=== PATIENT | male | born 1985 ===

== ENCOUNTER 2023-11-20 09:29 | Outpatient (AMB) | payer OTHER, SELFPAY ==
--- NOTE | 2023-11-20 09:33 | A.OFFVIS_ITS ---
Intake Vital Signs 11/20/23 09:35 Height 5 ft 10 in Weight 200 lb 9.93 oz BMI 28.8 BP 140/90 H Blood Pressure Location Lt brachial Position Sitting Pulse 80 Intake Visit Reasons: Gastroesophageal reflux disease (GERD) Intake Note: Gerson presents to in office visit today as a new patient for GERD. CC: Patient reports GERD symptoms for 8 months, worst the last 5 months. He reports a lot of burping, worst with carbonated drinks and certain foods. Per patient he sometimes is constipated. Denies other GI symptoms. Multifocal Lens Inspector Required: No Allergies No Known Allergies Allergy (Verified 11/20/23 09:42) HPI Gastroesophageal reflux disease (GERD) HPI Details 38-year-old male here for initial evalua tion of GERD not responsive to H2 therapy. He is referred by Analilia Lindquist of the [facility]. PMX Childhood asthma Smoker Overweight Hypertension High cholesterol Eczema Migraines Depression History of hematuria GERD Low back pain/FACET ARTHROPATHY Joint pain/pelvis * SURGICAL HISTORY Adenoidectomy [place] teeth removes * ALLERGIES: NKDA * [facility] LABS: No labs in our system TODAY'S VISIT The problems started about 3 years ago when I got up and had a very sharp pain that dropped me to the floor. He presented to the [place] and to [facility] and was told that his liver was enlarged r/t drinking. He says his stools were runny back then as well when he was drinking more or had mixed drinks as opposed to beers. He has been having HB, burping and a lot of gas. This is worsened with carbonated beverages. He has a lot of flatulence. He moves his bowels 2-3 times a day and it varies between soft and watery stools. Aside from beer he also would have diarrhea with fried foods. He admits that he will have mild intermittent rectal leakage with flatulence. He also is having some early satiety after a few bites of food or even a drink/beverage. This happens 1-3 times a week. He denies any new medications, preceding illness, or big diet changes aside what he already said. He was on o2o and fiber with some help to the stool and HB. He is now on omeprazole, but was on famotidine in the past but not working very well. He also is on magnesium - which he thought was for GERD but this is likely c/t the gas and diarrhea. He will have intermittent sharp pains mostly under the ribcage to the left. The pain will be very bad for a few seconds and they last 30secs to 1 minute. This is not every day, a couple of times a week. No known FHX of food allergies or diarrheal syndromes. No known FHX GB disease. Will get diarrhea w/o, rast, crp, etc, HP stool, panc elastase. US to see if GB involved. STOP magnesium, change omeprazole to pantoprazole to avoid potential class s/e of diarrhea, ok to continue famotidine. Uses [place] pharmacy - I have written rx since we can not do E prescribing to the [place] successfully. I will also beginning a Chem panel both for potential pre-op and to evaluate his liver function. ROV 3 weeks. [facility] Medical History (Updated 11/20/23 @ 10:17 by DAVID Rojas) Tobacco use Migraine without aura, not intractable, without status migrainosus Major depressive disorder, recurrent, severe w/o psychotic behavior Pain, joint, pelvic region Hyperlipidemia, unspecified Hepatomegaly, not elsewhere classified Hematuria, unspecified Gastro-esophageal reflux disease without esophagitis Flexural eczema Essential (primary) hypertension Depression, unspecified Surgical History (Updated 11/20/23 @ 11:09 by DAVID Rojas) H/O wisdom tooth extraction H/O adenoidectomy Family History Maternal Aunt Cancer Paternal Grandmother Diabetes Father High cholesterol HTN (hypertension) Social History Alcohol intake: current Alcohol intake frequency: a few times a week Patient Tobacco Use Status: Current everyday Tobacco user Cigarette Packs Per Day: 10 Years Smoked: 20 years Substance Use Type: Marijuana Review of Systems Const Denies fatigue, Denies fever(s), Reports headache(s), Denies night sweats, Denies poor appetite and Denies weight loss Eyes Details: Glasses Reports requires corrective lenses ENT Reports Normal hearing present, Denies dental pain, Denies dysphagia, Reports headache(s), Denies hearing loss, Denies mouth pain, Denies odynophagia, Denies throat swelling, Denies tongue swelling and Reports other (Dentition adequate) Card Reports no additional complaints Resp Reports no additional complaints GI Details: Reports abdominal pain, Reports belching, Denies melena, Reports bloating, Denies hematochezia, Denies constipation, Denies GI cramping, Denies dysphagia, Reports excessive flatus, Reports early satiety, Reports heartburn, Reports diarrhea, Denies nausea, Denies odynophagia, Denies vomiting and Denies hematemesis Musc Reports back pain and Reports myalgias Skin/Breast Denies pruritus, Denies lesions, Denies rash and Denies jaundice Neuro Reports Normal hearing present, Denies Abnormal speech present and Reports headache(s) Endo Denies fatigue Aller/Immun Denies throat swelling and Denies tongue swelling Physical Exam Vital Signs: Last Vital Signs Pulse 80 11/20/23 09:35 BP 140/90 H 11/20/23 09:35 BMI result Body Mass Index 28.8 Const General: cooperative, no acute distress, well developed and well groomed Nutritional Appearance: average body habitus and well nourished Orientation/consciousness: oriented to person, oriented to place and oriented to time Limitations: No language barrier HEENT Head: Yes normocephalic and Yes atraumatic Eyes General: appearance normal, both eyes and all related structures Pupils: Equal, round and reactive pupils present Neck Neck: Yes normal visual inspection and Yes no lymphadenopathy Thyroid: Thyroid normal Resp Effort & Inspection: normal respiratory effort and able to speak in complete sentences Auscultation: clear to auscultation bilaterally Cardio Rate: regular rate Rhythm: regular rhythm Heart sounds: Normal, physiologic split S2 sound present Peripheral pulses: radial pulses present and posterior tibial pulses present GI Inspection: No distended and No Abdominal panniculus present Palpation (GI): Soft to palpation, nontender, no guarding, not rigid and No hepatosplenomegaly present Percussion: Yes normal to percussion Auscultation: Hyperactive bowel sounds present Rectal Exam - Male: Yes deferred Skin General skin exam: no rashes or lesions noted, turgor normal, skin not dry, no jaundice, No spider nevi and no striae Rashes: no rashes Nails: normal Neuro General: oriented to person, oriented to place and oriented to time Cranial nerves: Yes Equal, round and reactive pupils present and Yes Normal hearing present Speech: No Abnormal speech present Extrem General: Yes normal to inspection, No clubbing, No cyanosis and No edema Psych Appearance: grossly normal and well kempt Mental Status: mental status grossly normal Speech and movement: Normal speech and movement present Affect: normal affect Attitude: cooperative Thought process: Normal thought process present and not confabulating Thought content: Normal thought content present Insight: Fair insight present (Psych) and Limited insight present (Psych) Judgement: Fair judgement present (Psych) and Limited judgement present (Psych) Assessment & Plan Assessment & Plan (1) Gastro-esophageal reflux disease without esophagitis: Code(s): K21.9 - Gastro-esophageal reflux disease without esophagitis (2) Tobacco use: Code(s): Z72.0 - Tobacco use (3) Diarrhea: Code(s): R19.7 - Diarrhea, unspecified (4) Upper abdominal pain: Code(s): R10.10 - Upper abdominal pain, unspecified Plan The problems started about 3 years ago when I got up and had a very sharp pain that dropped me to the floor. [facility] and was told that his liver was enlarged r/t drinking. He says his stools were runny back then as well when he was drinking more or had mixed drinks as opposed to beers. He has been having HB, burping and a lot of gas. This is worsened with carbonated beverages. He has a lot of flatulence. He moves his bowels 2-3 times a day and it varies between soft and watery stools. Aside from beer he also would have diarrhea with fried foods. He admits that he will have mild intermittent rectal leakage with flatulence. He also is having some early satiety after a few bites of food or even a drink/beverage. This happens 1-3 times a week. He denies any new medications, preceding illness, or big diet changes aside what he already said. He was on o2o and fiber with some help to the stool and HB. He is now on omeprazole, but was on famotidine in the past but not working very well. He also is on magnesium - which he thought was for GERD but this is likely c/t the gas and diarrhea. He will have intermittent sharp pains mostly under the ribcage to the left. The pain will be very bad for a few seconds and they last 30secs to 1 minute. This is not every day, a couple of times a week. No known FHX of food allergies or diarrheal syndromes. No known FHX GB disease. Will get diarrhea w/o, rast, crp, etc, HP stool, panc elastase. US to see if GB involved. STOP magnesium, change omeprazole to pantoprazole to avoid potential class s/e of diarrhea, ok to continue famotidine. Uses [place] pharmacy - I have written rx since we can not do E prescribing to the [place] successfully. I will also beginning a Chem panel both for potential pre-op and to evaluate his liver function. ROV 3 weeks. Orders: Orders Comprehensive Met. Panel Today K21.9 - Gastro-esophageal reflux disease without esophagitis, R10.10 - Upper abdominal pain, unspecified, R19.7 - Diarrhea, unspecified C Reactive Protein Today K21.9 - Gastro-esophageal reflux disease without esopha gitis, R10.10 - Upper abdominal pain, unspecified, R19.7 - Diarrhea, unspecified Pancreatic Elastase-1 Today K21.9 - Gastro-esophageal reflux disease without esophagitis, R10.10 - Upper abdominal pain, unspecified, R19.7 - Diarrhea, unspecified H pylori Ag Stool Today K21.9 - Gastro-esophageal reflux disease without esophagitis, R10.10 - Upper abdominal pain, unspecified, R19.7 - Diarrhea, unspecified Gamma Glutamyl Transpeptidase Today R10.10 - Upper abdominal pain, unspecified, R19.7 - Diarrhea, unspecified Complete Blood Count Auto Diff Today K21.9 - Gastro-esophageal reflux disease without esophagitis, R10.10 - Upper abdominal pain, unspecified, R19.7 - Diarrhea, unspecified US abdomen complete Today K21.9 - Gastro-esophageal reflux disease without esophagitis, R10.10 - Upper abdominal pain, unspecified, R19.7 - Diarrhea, unspecified Transglutaminase IgA Today R10.10 - Upper abdominal pain, unspecified, R19.7 - Diarrhea, unspecified Transglutaminase Ab IgG Today R10.10 - Upper abdominal pain, unspecified, R19.7 - Diarrhea, unspecified Rast Allergen Today R10.10 - Upper abdominal pain, unspecified, R19.7 - Diarrhea, unspecified Medications: New pantoprazole (Protonix) 40 mg PO DAILY 30 days 30 tabs 3RF K21.9 - Gastro- esophageal reflux disease without esophagitis Coding Level of Care Code New Pt Level 3 (17978) Diagnoses Gastro-esophageal reflux disease without esophagitis K21.9 Tobacco use Z72.0 Diarrhea R19.7 Upper abdominal pain R10.10
[2023-11-20 09:35] VITALS: BP 140/90; PULSE 80; BMI 28.8
== END 2023-11-20 10:32 | disposition home or self-care (01) ==
PROVIDERS: PCP Nurse Practitioner Family; Visit Provider Nurse Practitioner
DX: K21.9 Gastro-esophageal reflux disease without esophagitis (principal); Z72.0 Tobacco use; R19.7 Diarrhea, unspecified; R10.10 Upper abdominal pain, unspecified
CPT/HCPCS: 99203

== ENCOUNTER → 2023-11-20 09:29 | Outpatient (BNVA) | payer OTHER, SELFPAY | PROVIDERS: PCP Nurse Practitioner Family; Visit Provider Nurse Practitioner | DX: K21.9 Gastro-esophageal reflux disease without esophagitis (principal); Z72.0 Tobacco use; R19.7 Diarrhea, unspecified; R10.10 Upper abdominal pain, unspecified | CPT/HCPCS: 99202 ==

== ENCOUNTER 2023-11-20 21:04 | Emergency (ER) | payer OTHER, SELFPAY ==
--- NOTE | 2023-11-20 | ECG_ITS ---
Test Reason : OVERDOSE Blood Pressure : / mmHG Vent. Rate : 089 BPM Atrial Rate : 089 BPM P-R Int : 182 ms QRS Dur : 078 ms QT Int : 334 ms P-R-T Axes : 060 011 039 degrees QTc Int : 406 ms Normal sinus rhythm Normal ECG No previous ECGs available Referred By: Generic ED Physician Electronically Signed By:CAMELIA LABOY
[2023-11-20 21:07] VITALS: BP 129/84; PULSE 72; O2SAT 97
[2023-11-20 21:19] VITALS: BP 100/70; PULSE 84; RESP 14; TEMP 36.8; O2SAT 98; BMI 28.1
--- NOTE | 2023-11-20 21:28 | MHC.EDTECH ---
This Tech assumed care of this pt upon arrival. Pt changed into hospital gown and checked by security for any contraband. Pt allowed to keep cellphone by bedside. Pt belongings locked in POD locker 7. Pt placed on environmental monitoring technician, EKG done and handed to a provider
[2023-11-20 21:43] LABS: MANUAL DIFF FLAG NO
[2023-11-20 21:45] LABS: Basophils Percent Auto 0.4 % (0-2); Eosinophils Absolute Auto 0.1 X10*3/uL (0.0-0.4); Hematocrit 43.2 % (42.0-52.0); Hemoglobin 14.9 g/dl (14.0-18.0); Imm Gran Abs Auto 0.09 X10*3/uL (0.00-0.03); Imm Gran Pct Auto 0.8 % (0.0-0.4); Lymphocytes Absolute Auto 2.6 X10*3/uL (1.2-4.9); Lymphocytes Percent Auto 24.4 % (20-40); Mean Corpuscular HGB Conc 34.5 g/dl (31.0-36.0); Mean Corpuscular Hemoglobin 32.7 pg (27.0-33.0); Mean Corpuscular Volume 94.9 fL (80.0-98.0); Mean Platelet Volume 9.7 fL (9.4-12.4); Monocytes Absolute Auto 0.5 X10*3/uL (0.1-1.2); Monocytes Percent Auto 4.5 % (2-11); Neutrophils Absolute Auto 7.4 x10*3/uL (2.0-8.3); Neutrophils Percent Auto 68.9 % (45-73); Platelet Count 207 X10*3/uL (160-400); Red Blood Count 4.55 X10*6/uL (4.60-5.80); Red Cell Distribution Width 12.4 % (11.0-16.0); White Blood Count 10.8 X10*3/uL (4.8-10.8)
[2023-11-20 22:01] LABS: Alanine Aminotransferase 24 U/L (0-40); Albumin Level 3.6 g/dL (3.5-5.0); Alkaline Phosphatase 45 U/L (39-117); Anion Gap 15 (12-20); Aspartate Amino Transferase 25 U/L (5-37); Bilirubin Total 0.5 mg/dL (0.0-1.0); Blood Urea Nitrogen 18 mg/dL (9-16); Calcium 8.2 mg/dL (8.4-10.2); Carbon Dioxide 25 mmol/L (22-29); Chloride 102 mmol/L (96-108); Creatinine Clr Calc Pharmacy 102.2; Estimated Glomerular Filt Rate > 60; Ethanol < 10 mg/dL; Glucose Random 136 mg/dL (60-115); Potassium 3.6 mmol/L (3.3-5.1); Sodium 138 mmol/L (135-145); Total Protein 6.1 g/dL (6.5-8.0)
[2023-11-20 23:02] VITALS: BP 116/77; PULSE 78; RESP 13; TEMP 36.8; O2SAT 98
[2023-11-20 23:18] LABS: Appearance Urine Clear; Color Urine Dark Yellow; Glucose Urine UA Negative (Negative); Leukocyte Esterase Urine Negative (Negative); Nitrite Urine Negative (Negative); PH 5.5 (5.0-9.0); Specific Gravity - Urine 1.025 (1.005-1.025); Urine Blood Negative (Negative); Urine Ketones Trace mg/dL (Negative); Urine Protein Trace mg/dL (Neg-Trace)
[2023-11-20 23:26] LABS: Amphetamine Screen Urine Not Detected (Not Detect); Barbiturates, Urine Not Detected (Not Detect); Benzodiazepines Screen Urine Not Detected (Not Detect); Cannabinoid Screen Urine POSITIVE (Not Detect); Cocaine Screen Urine Not Detected (Not Detect); Fentanyl, urine Not Detected (Not Detect); Opiate Screen Urine Not Detected (Not Detect); Phencyclidine Screen Urine Not Detected (Not Detect)
[2023-11-20 23:31] LABS: Bacteria Urine None Seen (None Seen); Granular Casts Urine Present; Squamous Epithelial Cell Urine 0-2 /HPF (0-2); WBC Urine 0-5 /HPF (0-5)
[2023-11-20 23:32] LABS: RBC Urine 0-2 /HPF (0-2)
[2023-11-21] VITALS: BP 122/72; PULSE 76; RESP 18; O2SAT 98
--- NOTE | 2023-11-21 00:08 | ED_ITS ---
HPI - General Adult General Chief complaint: Fall Stated complaint: Post syncope, non diagnostic 12 lead Time Seen by Provider: 11/20/23 21:52 Source: patient and EMS Mode of arrival: EMS History of Present Illness HPI narrative: 38-year-old male who arrives via EMS after he has been out with friends, consuming alcohol (2 beers), smoked some of his own weed which he has smoked previously but states he then went outside and smoke some weed from an unknown individual. Patient states he then went into the establishment, felt very dizzy and states that he fell in the bathroom and then was able to get back up and go into the main bar area where he felt a little bit out of it and thinks that he may have passed out and then someone asked him if he was okay, patient is unsure of exact course of events but then states that EMS arrived. He denies any medical problems other than acid reflux. Related Data Home Medications Medication Instructions Recorded Confirmed famotidine 10 mg tablet 10 mg PO DAILY 11/15/23 Previous Rx's Medication Instructions Recorded pantoprazole 40 mg tablet,delayed 40 mg PO DAILY 30 days #30 tabs 11/20/23 release (Protonix) Allergies Allergy/AdvReac Type Severity Reaction Status Date / Time No Known Allergies Allergy Verified 11/20/23 09:42 Review of Systems 2 Review of Systems: Pertinent positives and negatives as stated in HPI PENDING SALE TO [facility] Past Medical History Source: nursing notes reviewed Medical History Tobacco use Migraine without aura, not intractable, without status migrainosus Major depressive disorder, recurrent, severe w/o psychotic behavior Pain, joint, pelvic region Hyperlipidemia, unspecified Hepatomegaly, not elsewhere classified Hematuria, unspecified Gastro-esophageal reflux disease without esophagitis Flexural eczema Essential (primary) hypertension Depression, unspecified Surgical History H/O wisdom tooth extraction H/O adenoidectomy Family History Family History Maternal Aunt Cancer Paternal Grandmother Diabetes Father High cholesterol HTN (hypertension) Social History Social History Alcohol intake: current Alcohol intake frequency: 3 or more drinks per day Alcohol type: beer Patient Tobacco Use Status: Current everyday Tobacco user Cigarette Packs Per Day: 10 Years Smoked: 20 years Smoked in Last 30 Days: Yes Use of substances other than those prescribed or required for medical reasons: Yes Substance Use Type: Hallucinogens and Marijuana Substance Use Frequency: Chronic Longstanding Advance Directives: No Advance Directives Information Provided: No Physical Exam ED Vital Signs: Vital Signs - 24 hr 11/20/23 21:19 11/20/23 23:02 11/21/23 00:00 Temperature 98.2 F 98.3 F Pulse Rate 84 78 76 Respiratory Rate 14 13 18 Blood Pressure 100/70 116/77 122/72 Pulse Oximetry 98 98 98 Oxygen Delivery Method Room Air Room Air BMI result Body Mass Index 28.1 VITAL SIGNS: Reviewed. GENERAL: Well developed, well nourished, in no acute distress. HEAD: Normocephalic/atraumatic EYES: PERRLA, EOMI EARS: Ext canals without abnormality NOSE: Nares patent bilateral OROPHARYNX: no oral lesions noted, posterior pharynx clear NECK: Supple, no adenopathy LUNGS: Normal breath sounds. No adventitious sounds or accessory muscle use. SpO2<98> CARDIOVASCULAR: Regular rate and rhythm without noted murmurs ABDOMEN: Soft, non-tender, non-distended with bowel sounds. MUSCULOSKELETAL: No tenderness, deformities, or effusions noted on gross inspection. EXTREMITIES: No cyanosis, clubbing or edema. SKIN: Inspection of the skin reveals no rashes NEUROLOGIC: Alert and oriented x 4. Strength and sensation to light touch were grossly intact x 4. Medical Decision Making Medical Decision Making MDM Narrative: 38-year-old male with history and clinical presentation, DDX: I have no clinical suspicion for a syncopal episode as I feel this reaction is secondary to polysubstance use. It was mentioned of the possibility of she rooms, patient does not recall all the details but states that he is otherwise feeling much better. He denies any current hallucinations, denies any voices. I reviewed all investigations and hematologic indices do not demonstrate an leukocytosis or left shift and there is no anemia or thrombocytopenia. Chemistry indices do not demonstrate an JAY and there is no electrolyte or liver enzyme derangements, and I sensitivity troponin is undetectable. Urinalysis is negative for UTI or hematuria. UDS does not demonstrate any presence of alcohol and urine drug screen only positive for marijuana. However, given the fact that our drug screen is not extensive there are obviously other drugs that we would not detect. EKG without acute findings. I discussed all results and findings with the patient at bedside. Patient feels that this may have been seizure related and he was strongly encouraged to follow-up with his primary care doctor and discuss a referral to Neurology. Differential Diagnosis Differential Diagnoses: The differential diagnosis associated with the presentation includes Please see the discussion above Admission/Observation Consideration of admission/observation: Escalation of care including admission/observation considered Please see the discussion above Lab Data MDM Lab Attestation statement: I reviewed the patient's lab results. Please see the discussion above 11/20/23 21:38 11/20/23 21:38 Labs: Lab Results 11/20/23 11/20/23 Range/Units 21:38 23:07 WBC 10.8 (4.8-10.8) X10*3/uL RBC 4.55 L (4.60-5.80) X10*6/uL Hgb 14.9 (14.0-18.0) g/dl Hct 43.2 (42.0-52.0) % MCV 94.9 (80.0-98.0) fL MCH 32.7 (27.0-33.0) pg MCHC 34.5 (31.0-36.0) g/dl RDW 12.4 (11.0-16.0) % Plt Count 207 (160-400) X10*3/uL MPV 9.7 (9.4-12.4) fL Immature Gran % (Auto) 0.8 H (0.0-0.4) % Neut % (Auto) 68.9 (45-73) % Lymph % (Auto) 24.4 (20-40) % [place] % (Auto) 4.5 (2-11) % Eos % (Auto) 1.0 (0-4) % Baso % (Auto) 0.4 (0-2) % Lymph # (Auto) 2.6 (1.2-4.9) X10*3/uL [place] # (Auto) 0.5 (0.1-1.2) X10*3/uL Eos # (Auto) 0.1 (0.0-0.4) X10*3/uL Baso # (Auto) 0.0 (0.0-0.2) X10*3/uL Abs Immat Gran (auto) 0.09 H (0.00-0.03) X10*3/uL Absolute Neuts (auto) 7.4 (2.0-8.3) x10*3/uL Absolute Nucleated RBC 0.000 (0.0-0.012) X10*3/uL Nucleated RBC % (auto) 0.0 (0.0-0.2) /100WBC Sodium 138 (135-145) mmol/L Potassium 3.6 (3.3-5.1) mmol/L Chloride 102 (96-108) mmol/L Carbon Dioxide 25 (22-29) mmol/L Anion Gap 15 (12-20) BUN 18 H (9-16) mg/dL Creatinine 1.10 (0.5-1.4) mg/dL Estim Creat Clear Calc 102.2 Estimated GFR > 60 Random Glucose 136 H (60-115) mg/dL Calcium 8.2 L (8.4-10.2) mg/dL Total Bilirubin 0.5 (0.0-1.0) mg/dL AST 25 (5-37) U/L ALT 24 (0-40) U/L Alkaline Phosphatase 45 (39-117) U/L Troponin I High Sens < 2.7 (<3.5-35.0) ng/L Total Protein 6.1 L (6.5-8.0) g/dL Albumin 3.6 (3.5-5.0) g/dL Urine Color Dark Yellow Urine Appearance Clear Urine pH 5.5 (5.0-9.0) Ur Specific [place] 1.025 (1.005-1.025) Urine Protein Trace (Neg-Trace) mg/dL Urine Glucose (UA) Negative (Negative) mg/dL Urine Ketones Trace (Negative) mg/dL Urine Blood Negative (Negative) Urine Nitrite Negative (Negative) Ur Leukocyte Esterase Negative (Negative) Urine RBC 0-2 (0-2) /HPF Urine WBC 0-5 (0-5) /HPF Ur Squamous Epith Cells 0-2 (0-2) /HPF Urine Bacteria None Seen (None Seen) Hyaline Casts 6-10 (0-2) /LPF Granular Casts Present Urine Opiates Screen Not Detected (Not Detect) Urine Fentanyl Screen Not Detected (Not Detect) Ur Barbiturates Screen Not Detected (Not Detect) Ur Phencyclidine Scrn Not Detected (Not Detect) Ur Amphetamines Screen Not Detected (Not Detect) U Benzodiazepines Scrn Not Detected (Not Detect) Urine Cocaine Screen Not Detected (Not Detect) U Marijuana (THC) Screen POSITIVE H (Not Detect) Ethyl Alcohol < 10 mg/dL Independent Interpretation I performed an independent interpretation of an: EKG Interpretation: Normal sinus rhythm, HR-89, no STEMI, LA/QRS/QTC is within normal limits. External Record Review External record reviewed: Office record Chronic Conditions Patient?s care impacted by: Other GERD Critical Care Time Critical Care Time Critical Care Time: Yes Total Critical Care Time: 45 Attestation: I personally attest to this time spent taking care of the patient. Discharge Plan Discharge Clinical Impression: Polysubstance use disorder, Near syncope Patient Disposition: Home, Self-Care Instructions: Near Syncope (ED) Additional Instructions: I strongly encourage follow-up with your primary care doctor in discuss referral to Neurology. Return to the ER for any worsening symptoms. Prescriptions: No Action famotidine 10 mg tablet 10 mg PO DAILY pantoprazole [Protonix] 40 mg tablet,delayed release (DR/EC) 40 mg PO DAILY 30 Days Qty: 30 3RF Referrals: Analilia Lindquist NP [Primary Care Provider] -
[2023-11-21 00:40] LABS: Troponin-I High Sensitivity < 2.7 ng/L (<3.5-35.0)
[2023-11-21 02:00] VITALS: BP 120/76; PULSE 70; RESP 18; O2SAT 98
== END 2023-11-21 02:16 | disposition home or self-care (01) ==
PROVIDERS: Emergency Provider Student in an Organized Health Care Education/Training Program; PCP Nurse Practitioner Family
DX: F19.90 Other psychoactive substance use, unspecified, uncomplicated (principal); R42 Dizziness and giddiness; Z79.899 Other long term (current) drug therapy
CPT/HCPCS: 36415; 80053; 80307; 81001; 84484; 85025; 93005; 99283; 99285

== ENCOUNTER → 2023-11-20 21:24 | Outpatient (BNV) | payer OTHER, SELFPAY | PROVIDERS: Emergency Provider Student in an Organized Health Care Education/Training Program; PCP Nurse Practitioner Family; Visit Provider Internal Medicine | DX: R41.82 Altered mental status, unspecified (principal) | CPT/HCPCS: 93010 ==

== ENCOUNTER 2024-02-05 08:07 | Outpatient (REF) | payer OTHER, SELFPAY ==
--- NOTE | ~2024-02-05 | MR_ITS ---
EXAMINATION: MR BRAIN WITHOUT CONTRAST CLINICAL INFORMATION: Possible seizure activity COMPARISON: None TECHNIQUE: Multiplanar multisequence MR imaging of the brain was obtained without intravenous contrast. FINDINGS: There is susceptibility artifact emanating from the right maxillofacial region, presumably representing metallic hardware, which partially obscures the anterior intracranial contents on some sequences. Study is also somewhat degraded by motion artifact. There is no acute infarct on diffusion-weighted imaging. There is no intracranial hemorrhage on iron-sensitive imaging. No extra-axial collection or mass effect/herniation. Normal parenchymal signal characteristics. The hippocampi are symmetric in size, contour, and signal intensity, demonstrating no convincing imaging evidence of mesial temporal sclerosis. The temporal horns appear symmetric. No hydrocephalus. The ventricles are normal in morphology and size. 6 mm pineal cyst. The cerebellar tonsils are normally positioned. The craniocervical junction is normal. Marrow signal is within normal limits. The visualized soft tissues are without significant abnormality. Right maxillary sinus opacification, right anterior ethmoid, and left frontal sinus opacification MR/MR head/brain wo con IMPRESSION: Allowing for the technical limitations of motion and susceptibility artifact, unremarkable noncontrast MRI of the brain.
== END 2024-02-05 08:08 | disposition home or self-care (01) ==
LOC: HO.MRI 08:07
PROVIDERS: PCP Nurse Practitioner Family; Visit Provider Nurse Practitioner Family
DX: R56.9 Unspecified convulsions (principal)
CPT/HCPCS: 70551

== ENCOUNTER 2025-08-15 10:32 | Emergency (ER) | payer SELFPAY ==
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
[2025-08-15 10:36] VITALS: BP 148/96; PULSE 100; O2SAT 99
[2025-08-15 10:37] VITALS: BP 127/81; PULSE 86; RESP 18; TEMP 37.1; O2SAT 99; BMI 28.0
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
--- NOTE | 2025-08-15 10:55 | PC.NURSE ---
Patient requesting for c collar to be removed, educated multiple times not to remove c collar. Patient verbalizing understanding.
[2025-08-15] MEDS: iohexoL 350 MG/ML 100 ML INFUS..BTL IV (11:07)
[2025-08-15 11:27] LABS: MANUAL DIFF FLAG NO
[2025-08-15 11:29] LABS: Hematocrit 46.4 % (42.0-52.0); Hemoglobin 15.5 g/dl (14.0-18.0); Imm Gran Abs Auto 0.05 X10*3/uL (0.00-0.03); Imm Gran Pct Auto 0.5 % (0.0-0.4); Lymphocytes Absolute Auto 3.3 X10*3/uL (1.2-4.9); Mean Corpuscular HGB Conc 33.4 g/dl (31.0-36.0); Mean Corpuscular Hemoglobin 32.6 pg (27.0-33.0); Mean Corpuscular Volume 97.5 fL (80.0-98.0); NRBC Abs Auto 0.000 X10*3/uL (0.0-0.012); NRBC Pct Auto 0.0 /100WBC (0.0-0.2); Platelet Count 316 X10*3/uL (160-400); Red Blood Count 4.76 X10*6/uL (4.60-5.80); White Blood Count 10.9 X10*3/uL (4.8-10.8)
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
[2025-08-15 11:44] VITALS: BP 136/92; PULSE 89; RESP 20; TEMP 36.7; O2SAT 97
[2025-08-15 11:45] LABS: Alanine Aminotransferase 37 U/L (0-40); Albumin Level 4.6 g/dL (3.5-5.0); Alkaline Phosphatase 59 U/L (39-117); Anion Gap 15 (12-20); Aspartate Amino Transferase 56 U/L (5-37); Blood Urea Nitrogen 11 mg/dL (9-16); Calcium 8.4 mg/dL (8.4-10.2); Carbon Dioxide 26 mmol/L (22-29); Chloride 107 mmol/L (96-108); Creatinine Clr Calc Pharmacy 124.9; Estimated Glomerular Filt Rate > 60; Potassium 4.1 mmol/L (3.3-5.1); Sodium 144 mmol/L (135-145); Total Protein 7.5 g/dL (6.5-8.0)
[2025-08-15 12:07] LABS: INTERNATIONAL NORM RATIO 1.0 (0.9-1.1); Prothrombin Time 11.1 SEC (10.9-12.4)
--- NOTE | 2025-08-15 14:42 | PC.NURSE ---
Patient roommate came in to ED to drive patient home
[2025-08-15 14:55] VITALS: BP 136/92; PULSE 89; RESP 20; TEMP 36.7; O2SAT 97
[2025-08-15 15:04] LABS: Cannabinoid Screen Urine POSITIVE (Not Detect)
== END 2025-08-15 14:55 | disposition home or self-care (01) ==
PROVIDERS: Emergency Provider Emergency Medicine Emergency Medical Services
DX: S09.90XA Unspecified injury of head, initial encounter (principal); R51.9 Headache, unspecified; M54.2 Cervicalgia; R07.89 Other chest pain; F10.129 Alcohol abuse with intoxication, unspecified; F12.90 Cannabis use, unspecified, uncomplicated; R11.0 Nausea; F17.210 Nicotine dependence, cigarettes, uncomplicated; Y90.8 Blood alcohol level of 240 mg/100 ml or more; V47.5XXA Car driver injured in collision with fixed or stationary object in traffic accident, initial encounter; Y93.9 Activity, unspecified; Y92.410 Unspecified street and highway as the place of occurrence of the external cause; Y99.8 Other external cause status; Z51.81 Encounter for therapeutic drug level monitoring; Z79.899 Other long term (current) drug therapy
CPT/HCPCS: 36415; 70450; 71260; 72125; 74177; 80048; 80076; 80307; 85025; 85610; 96360; 96361; 99284; 99285; Q9967

== ENCOUNTER → 2025-08-15 10:52 | Outpatient (BNV) | payer OTHER, SELFPAY | PROVIDERS: Emergency Provider Emergency Medicine Emergency Medical Services; Visit Provider Radiology Vascular & Interventional Radiology | DX: Z04.3 Encounter for examination and observation following other accident (principal); M50.30 Other cervical disc degeneration, unspecified cervical region; S09.90XA Unspecified injury of head, initial encounter; J34.89 Other specified disorders of nose and nasal sinuses; V89.2XXA Person injured in unspecified motor-vehicle accident, traffic, initial encounter | CPT/HCPCS: 70450; 71260; 72125; 74177 ==

== ENCOUNTER 2025-10-05 22:39 | Emergency (ER) | payer OTHER, SELFPAY ==
--- NOTE | 2025-10-05 | ECG_ITS ---
Test Reason : SYNCOPE Blood Pressure : */* mmHG Vent. Rate : 71 BPM Atrial Rate : 71 BPM P-R Int : 190 ms QRS Dur : 78 ms QT Int : 386 ms P-R-T Axes : 41 18 27 degrees QTcB Int : 419 ms Normal sinus rhythm Normal ECG When compared with ECG of 20-Nov-2023 21:24, No significant change was found Referred By: Generic ED Physician Electronically Signed By: REINALDO BOLAND MD
[2025-10-05 22:46] VITALS: BP 88/56; PULSE 70; O2SAT 98
[2025-10-05 22:47] VITALS: PULSE 78; O2SAT 99
[2025-10-05 23:01] VITALS: BP 88/54; PULSE 74; RESP 14; TEMP 36.4; O2SAT 99; BMI 27.6
[2025-10-05 23:15] LABS: MANUAL DIFF FLAG NO
[2025-10-05 23:18] LABS: Hematocrit 40.7 % (42.0-52.0); Hemoglobin 13.7 g/dl (14.0-18.0); Imm Gran Abs Auto 0.13 X10*3/uL (0.00-0.03); Imm Gran Pct Auto 1.2 % (0.0-0.4); Lymphocytes Absolute Auto 3.7 X10*3/uL (1.2-4.9); Mean Corpuscular HGB Conc 33.7 g/dl (31.0-36.0); Mean Corpuscular Hemoglobin 32.1 pg (27.0-33.0); Mean Corpuscular Volume 95.3 fL (80.0-98.0); NRBC Abs Auto 0.000 X10*3/uL (0.0-0.012); NRBC Pct Auto 0.0 /100WBC (0.0-0.2); Platelet Count 264 X10*3/uL (160-400); Red Blood Count 4.27 X10*6/uL (4.60-5.80); White Blood Count 10.7 X10*3/uL (4.8-10.8)
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
[2025-10-05 23:33] LABS: Alanine Aminotransferase 27 U/L (0-40); Albumin Level 3.5 g/dL (3.5-5.0); Alkaline Phosphatase 45 U/L (39-117); Anion Gap 11 (12-20); Aspartate Amino Transferase 29 U/L (5-37); Blood Urea Nitrogen 11 mg/dL (9-16); Calcium 7.8 mg/dL (8.4-10.2); Carbon Dioxide 24 mmol/L (22-29); Chloride 107 mmol/L (96-108); Creatinine Clr Calc Pharmacy 132.3; Estimated Glomerular Filt Rate > 60; Magnesium 2.0 mg/dL (1.6-2.6); Potassium 3.4 mmol/L (3.3-5.1); Sodium 139 mmol/L (135-145); Total Protein 5.8 g/dL (6.5-8.0)
[2025-10-05 23:38] LABS: Troponin-I High Sensitivity < 2.7 ng/L (<3.5-35.0)
[2025-10-06 01:00] VITALS: BP 105/74; PULSE 73; RESP 16; O2SAT 99
[2025-10-06 01:04] VITALS: BP 111/78; PULSE 80
--- NOTE | 2025-10-06 01:06 | PC.NURSE ---
pt alert and oriented X4, BP improved, pt ambulating in room with steady gait, denies any dizziness or lightheadedness. Pt wanting to leave. CHELSEY Brandon made aware. Pt will call ride to citrus picker. IV removed.
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
[2025-10-06 02:36] VITALS: BP 111/78; PULSE 80; RESP 14; TEMP 36.6; O2SAT 99
== END 2025-10-06 02:36 | disposition left against medical advice (07) ==
LOC: HO.ED 10-06 01:53
PROVIDERS: Emergency Provider Emergency Medicine; Referring Provider Internal Medicine Cardiovascular Disease
DX: R55 Syncope and collapse (principal); E78.5 Hyperlipidemia, unspecified; I10 Essential (primary) hypertension; F17.200 Nicotine dependence, unspecified, uncomplicated; Z71.6 Tobacco abuse counseling; Z53.29 Procedure and treatment not carried out because of patient's decision for other reasons
CPT/HCPCS: 36415; 80053; 80307; 83735; 84484; 85025; 93005; 96360; 99284; 99285

== ENCOUNTER → 2025-10-05 22:52 | Outpatient (BNV) | payer OTHER, SELFPAY | PROVIDERS: Emergency Provider Emergency Medicine; Visit Provider Internal Medicine Cardiovascular Disease | DX: R55 Syncope and collapse (principal) | CPT/HCPCS: 93010 ==